=== PATIENT | male | born 1950 | race Caucasian/White ===

== ENCOUNTER 2019-04-17 12:53 | Emergency (ER) | payer OTHER ==
[2019-04-17] MEDS ORDERED: Adacel (T-DAP) 0.5 ML SYRINGE ONE (13:12)
[2019-04-17] MEDS ORDERED: Bacitracin Zinc Ointment 30 gm TUBE ONE ×2 (13:20→13:22)
== END 2019-04-17 13:29 | disposition home or self-care (01) ==
LOC: BURERS 12:53
DX: S61.011A Laceration without foreign body of right thumb without damage to nail, initial encounter (principal); I10 Essential (primary) hypertension; I25.2 Old myocardial infarction; F32.9 Major depressive disorder, single episode, unspecified; Z79.899 Other long term (current) drug therapy; X58.XXXA Exposure to other specified factors, initial encounter
CPT/HCPCS: 90471; 90715